=== PATIENT | male | born 1990 | race African-American/Black ===

== ENCOUNTER 2021-03-06 07:52 | Outpatient (REF) | payer OTHER, SELFPAY ==
[2021-03-06 08:08] LABS: IDNOW Serial# 55D5AD1C
[2021-03-06 08:09] LABS: COVID-19 Test Positive (Negative)
== END 2021-03-06 07:53 | disposition home or self-care (01) ==
LOC: HO.LAB 07:52
PROVIDERS: Visit Provider Internal Medicine
DX: Z20.822 Contact with and (suspected) exposure to COVID-19 (principal)
CPT/HCPCS: 36415; 87635; C9803